=== PATIENT | male | born 1995 | race Caucasian/White ===

== ENCOUNTER 2018-03-29 10:08 | Emergency (ER) | payer BC, OTHER ==
[~2018-03-29] VITALS: Ht 165.1 cm; Wt 112.0 kg
[2018-03-29 10:11] VITALS: Ht 165.1 cm; Wt 112.0 kg
[2018-03-29 12:11] VITALS: BP 156/106
== END 2018-03-29 12:11 | disposition home or self-care (01) ==
LOC: ED 10:08
DX: S16.1XXA Strain of muscle, fascia and tendon at neck level, initial encounter (principal); S40.022A Contusion of left upper arm, initial encounter; V49.88XA Car occupant (driver) (passenger) injured in other specified transport accidents, initial encounter; Y93.89 Activity, other specified; Y92.89 Other specified places as the place of occurrence of the external cause; Y99.8 Other external cause status
CPT/HCPCS: J1885

== ENCOUNTER 2018-07-30 09:57 | Emergency (ER) | payer BC ==
[~2018-07-30] VITALS: Ht 165.1 cm; Wt 116.1 kg
[2018-07-30 10:02] VITALS: Ht 165.1 cm; Wt 116.1 kg
[2018-07-30 11:25] VITALS: BP 140/96
== END 2018-07-30 11:25 | disposition home or self-care (01) ==
LOC: ED 09:57
DX: M54.12 Radiculopathy, cervical region (principal); S46.002A Unspecified injury of muscle(s) and tendon(s) of the rotator cuff of left shoulder, initial encounter; R51 Headache; E66.01 Morbid (severe) obesity due to excess calories; Z68.41 Body mass index [BMI] 40.0-44.9, adult; V43.52XA Car driver injured in collision with other type car in traffic accident, initial encounter; Y93.I9 Activity, other involving external motion; Y92.488 Other paved roadways as the place of occurrence of the external cause; Y99.8 Other external cause status
CPT/HCPCS: J1100; J1885